=== PATIENT | female | born 1955 | race African-American/Black ===

== ENCOUNTER 2025-03-30 19:32 | Emergency (ER) | payer MEDICARE, OTHER ==
[2025-03-30 20:03] VITALS: TEMP 98.1
--- NOTE | 2025-03-30 20:15 | ED ---
General Adult HPI - General Chief complaint: Urogenital Stated complaint: Flank pain Time Seen by Provider: 03/30/25 19:50 Source: patient, RN notes reviewed Mode of arrival: EMS Limitations: no limitations - History of Present Illness Initial comments: This is a 69-year-old female with history including CAD, hypertension, hyperlipidemia presenting from [facility] via EMS for right flank pain (8/10) x 1 month. Patient endorses associated dysuria and history of nephrolithiasis. Denies fever, chills, hematuria, anuria. Patient also mentions swelling and pain in her right hand x 2 months that travels to her right arm without any known fall, trauma or other known cause for swelling/pain. Denies pleuritic chest pain, constant chest pain, dyspnea, N/V/D. Onset/Timin -: month(s) Location: abdomen, right, upper extremity Severity scale (1-10): 8 Quality: aching Consistency: constant Associated Symptoms: other (Dysuria) Treatments Prior to Arrival: other (Tylenol) - Related Data Previous Rx's Medication Instructions Recorded Cephalexin [Keflex] 500 mg PO Q12HR 1 Days #20 cap 03/30/25 Ketorolac [Toradol] 10 mg PO Q6HR PRN #15 tab 04/02/25 Lidocaine 5% Patch [Lidoderm 5% 1 patch TOPICAL DAILY PRN #30 patch 04/02/25 Patch] Allergies Allergy/AdvReac Type Severity Reaction Status Date / Time No Known Allergies Allergy Verified 04/02/25 15:12 Review of Systems ROS Statement: Those systems with pertinent positive or pertinent negative responses have been documented in the HPI. ROS Other: All systems not noted in ROS Statement are negative. Past Medical History Past Medical History: Coronary Artery Disease (CAD), Hyperlipidemia, Hypertension History of Any Multi-Drug Resistant Organisms: None Reported Additional Past Surgical History / Comment(s): "Broken neck" Smoking Status: Current every day smoker Past Alcohol Use History: None Reported Past Drug Use History: Heroin, IV Drug Use General Exam General appearance: alert, in no apparent distress Head exam: Present: atraumatic, normocephalic, normal inspection Eye exam: Present: normal appearance, PERRL, EOMI. Absent: scleral icterus, conjunctival injection, periorbital swelling ENT exam: Present: normal exam, mucous membranes moist Neck exam: Present: normal inspection. Absent: tenderness, meningismus, lymphadenopathy Respiratory exam: Present: normal lung sounds bilaterally. Absent: respiratory distress, wheezes, rales, rhonchi, stridor Cardiovascular Exam: Present: regular rate, normal rhythm, normal heart sounds. Absent: systolic murmur, diastolic murmur, rubs, gallop, clicks GI/Abdominal exam: Present: soft, normal bowel sounds. Absent: distended, tenderness, guarding, rebound, rigid Extremities exam: Present: full ROM, tenderness (Positive moderate right hand edema and TTP without obvious open wound, erythema, warmth, ecchymosis, crepitus, deformity), normal capillary refill, other (RUE distal neurovascular motor function intact. Radial pulse +2, capillary refill less than 2 seconds). Absent: pedal edema, joint swelling, calf tenderness Back exam: Present: normal inspection Neurological exam: Present: alert, oriented X3, CN II-XII intact Psychiatric exam: Present: normal affect, normal mood Skin exam: Present: warm, dry, intact, normal color. Absent: rash Course Vital Signs 03/30/25 03/31/25 20:00 00:55 Temperature 98.1 F 98.1 F Pulse Rate 57 L 55 L Respiratory 18 16 Rate Blood Pressure 158/93 137/73 O2 Sat by Pulse 98 100 Oximetry Medical Decision Making - Medical Decision Making Was pt. sent in by a medical professional or institution (Dr. PA, LOW PRESSURE FIRER, urgent care, hospital, or detention...) When possible be specific @ -No Did you speak to anyone other than the patient for history (EMS, parent, family, police, friend...)? What history was obtained from this source @ -No Did you review nursing and triage notes (agree or disagree)? Why? @ -I reviewed and agree with nursing and triage notes Were old charts reviewed (outside hosp., previous admission, EMS record, old EKG, old radiological studies, urgent care reports/EKG's, detention records)? Report findings @ -No old charts were reviewed Differential Diagnosis (chest pain, altered mental status, abdominal pain women, abdominal pain men, vaginal bleeding, weakness, fever, dyspnea, syncope, headache, dizziness, GI bleed, back pain, seizure, CVA, palpatations, mental h ealth, musculoskeletal)? @ -Differential Abdominal Pain Women: Appendicitis, Cholecystitis, diverticulosis, ischemic bowel, pancreatitis, hepatitis, UTI, gastroenteritis, AAA, incarcerated hernia, bowel obstruction, constipation, inflammatory bowel, hepatitis, peptic ulcer disease, splenic infarction, perforated viscus, vulvitis, ovarian torsion, PID, kidney stone, placenta abruption, this is not meant to be an all-inclusive list Differential Musculoskeletal Muscular strain, contusion, ligament sprain, fracture, arthritis, septic arthritis, bursitis, cellulitis, muscle spasm, nerve compression, DVT, arterial occlusion, herpes zoster, electrolyte abnormality, tumor.... This is not meant to be in all inclusive list EKG interpreted by me (3pts min.). @ -Not done X-rays interpreted by me (1pt min.). @ -Right hand x-ray shows no acute fracture or dislocation. CT interpreted by me (1pt min.). @ -AP CT shows no acute abdomen/pelvic abnormalities with no evidence of nephrolithiasis or obstructive uropathy. U/S interpreted by me (1pt. min.). @ - RUE Doppler ultrasound shows no evidence of DVT. What testing was considered but not performed or refused? (CT, X-rays, U/S, labs)? Why? @ -Patient declined repeat blood draw after initial blood was found to be hemolyzed What meds were considered but not given or refused? Why? @ -None Did you discuss the management of the patient with other professionals (professionals i.e. , PA, LOW PRESSURE FIRER, lab, RT, psych nurse, criminal justice social worker, concrete block layer, teacher, campus security officer, field nurse case manager)? Give summary @ -No Was smoking cessation discussed for >3mins.? @ -No Was critical care preformed (if so, how long)? @ -No Were there social determinants of health that impacted care today? How? (Homelessness, low income, unemployed, alcoholism, drug addiction, transportation, low edu. Level, literacy, decrease access to med. care, penitentiary, rehab)? @ -No Was there de-escalation of care discussed even if they declined (Discuss DNR or withdrawal of care, Hospice)? DNR status @ -No What co-morbidities impacted this encounter? (DM, HTN, Smoking, COPD, CAD, Cancer, CVA, ARF, Chemo, Hep., AIDS, mental health diagnosis, sleep apnea, morbid obesity)? @ -None Was patient admitted / discharged? Hospital course, mention meds given and route, prescriptions, significant lab abnormalities, going to OR and other pertinent info. @ -Patient initially provided IV normal saline, morphine, Toradol. UA positive for UTI. Blood work drawn was found to be hemolyzed and repeat blood draw needed to be performed. Patient declined repeat blood draw. Right hand x-ray shows no acute fracture or dislocation. RUE Doppler ultrasound shows no evidence of DVT. AP CT shows no acute abdomen/pelvic abnormalities with no evidence of nephrolithiasis or obstructive uropathy. Patient provided IV Rocephin and p.o. Bactrim DS, Keflex as well as p.o. clonidine. Keflex regimen sent to patient's pharmacy. Advised increased water and cranberry juice intake as well as Tylenol every 4-6 hours as needed for pain. Discussed patient with Dr. Vargas. Undiagnosed new problem with uncertain prognosis? @ -No Drug Therapy requiring intensive monitoring for toxicity (Heparin, Nitro, Insulin, Cardizem)? @ -No Were any procedures done? @ -No Diagnosis/symptom? @ -UTI Acute, or Chronic, or Acute on Chronic? @ -Acute Uncomplicated (without systemic symptoms) or Complicated (systemic symptoms)? @ -Complicated Side effects of treatment? @ -No Exacerbation, Progression, or Severe Exacerbation? @ -No Poses a threat to life or bodily function? How? (Chest pain, [place], [place], pneumonia, PE, COPD, DKA, ARF, appy, cholecystitis, CVA, Diverticulitis, Homicidal, Suicidal, threat to staff... and all critical care pts) @ -No - Lab Data Lab Results 03/30/25 Range/Units 20:11 Urine Color Light Yellow Urine Appearance Clear (Clear) Urine pH 5.5 (5.0-8.0) Ur Specific [place] 1.019 (1.001-1.035) Urine Protein Negative (Negative) Urine Glucose (UA) Negative (Negative) Urine Ketones Negative (Negative) Urine Blood Negative (Negative) Urine Nitrite Negative (Negative) Urine Bilirubin Negative (Negative) Urine Urobilinogen <2.0 (<2.0) mg/dL Ur Leukocyte Esterase Moderate H (Negative) Urine RBC 2 (0-5) /hpf Urine WBC 4 (0-5) /hpf Ur Squamous Epith Cells 4 (0-4) /hpf Urine Bacteria Moderate H (None) /hpf Urine Mucus Rare H (None) /hpf Disposition Clinical Impression: Urinary tract infection, Swelling of right hand Disposition: HOME SELF-CARE Condition: Good Instructions (If sedation given, give patient instructions): Urinary Tract Infection in Women (ED) Additional Instructions: Increase water cranberry juice intake. Follow-up with orthopedics regarding ongoing right hand/arm swelling and pain. Alternate Tylenol/Motrin every 4 hours for pain. Prescriptions: Cephalexin [Keflex] 500 mg PO Q12HR 1 Days #20 cap Is patient prescribed a controlled substance at d/c from ED?: No Referrals: None,Stated [Primary Care Provider] - 1-2 days Juanpablo Solorzano [Medical Doctor] - 1-2 days [facility] [Provider Group] - 1-2 days Time of Disposition: 21:49
--- NOTE | 2025-03-30 20:32 | XR ---
EXAMINATION TYPE: XR hand complete RT DATE OF EXAM: 03/30/2025 8:28 PM COMPARISON: None. CLINICAL INDICATION: Female, 69 years old with history of s/o RUE and hand pain/edema; PHH, pain TECHNIQUE: XR hand complete RT Frontal, lateral and oblique views were obtained. FINDINGS: Carpal alignment appears maintained. No acute osseous pathology is identified. No unexpecte d radiopaque foreign body. Interphalangeal degenerative osteophytic changes, most pronounced at the f irst digit DIP joint. No focal osseous erosion or aggressive periosteal reaction. IMPRESSION: No acute osseous abnormality. [facility], , 03/30/2025 8:30 PM
--- NOTE | 2025-03-30 21:14 | CT ---
EXAMINATION TYPE: CT abdomen pelvis wo con DATE OF EXAM: 03/30/2025 8:35 PM COMPARISON: None available. CLINICAL INDICATION: Female, 69 years old with history of Right flank pain, history of nephrolithiasi s; right flank pain, pain upon urination x2 weeks. Pt states hx of kidney stones. TECHNIQUE: Axial CT abdomen pelvis wo con;Sagittal and coronal reformats were created on a separate workstation. Oral contrast used: without Oral Contrast CT DLP: 517.5 mGycm, Automated exposure control for dose reduction was used. FINDINGS: LOWER CHEST: Unremarkable ABDOMEN LIVER: Unremarkable GALLBLADDER AND BILE DUCTS: Unremarkable. PANCREAS: Unremarkable. SPLEEN: Unremarkable. ADRENAL GLANDS: Unremarkable. KIDNEYS AND URETERS: No evidence of hydronephrosis or renal calculus. The ureters are unremarkable. PELVIS BLADDER: No evidence for wall thickening or mass given limitations of exam. REPRODUCTIVE: Unremarkable. ABDOMEN & PELVIS STOMACH AND BOWEL: Stomach and duodenum are unremarkable. Moderate diffuse colonic stool burden. No e vidence of bowel obstruction. PERITONEUM/RETROPERITONEUM: No evidence of pneumoperitoneum or free fluid. VASCULATURE: No evidence of aortic aneurysm. MUSCULOSKELETAL: No acute osseous abnormalities LYMPH NODES: No gross evidence for lymphadenopathy. SOFT TISSUE/ABDOMINAL WALL: Unremarkable IMPRESSION: No acute abnormality in the abdomen/pelvis. Specifically, no evidence of nephrolithiasis or hydroneph rosis/acute obstructive uropathy. [facility], , 03/30/2025 9:11 PM
--- NOTE | 2025-03-30 21:15 | US ---
EXAMINATION TYPE: US venous doppler duplex UE RT DATE OF EXAM: 03/30/2025 COMPARISON: NONE CLINICAL INDICATION: Female, 69 years old with history of s/o RUE and hand pain/edema; No hx of DVT. Pain and edema x a couple months. TECHNIQUE: Grayscale, color Doppler and spectral Doppler imaging of the upper extremity. SIDE PERFORMED: Right arm VESSELS IMAGED: IJV Subclavian Vein Axilla Vein Brachial Vein(s) Radial Paired Veins Ulnar Paired Veins Cephalic Vein* Basilic Vein* (*superficial vessels) FINDINGS: Right Arm: No evidence of DVT. *Unable to follow cephalic or basilic vein fully down the arm. Both veins appear wnl in the upper arm . IMPRESSION: No evidence of DVT in the visualized vasculature of the right upper extremity. [facility], , 03/30/2025 9:12 PM
[2025-03-30 21:37] LABS: Appearance,Urine Clear (Clear); Bacteria,Urine Moderate /hpf; Bilirubin,Urine Negative (Negative); Blood,Urine Negative (Negative); Color,Urine Light Yellow; Glucose,Urine (UA) Negative (Negative); Ketones,Urine Negative (Negative); Leukocyte Esterase,Urine Moderate (Negative); Mucus,Urine Rare /hpf; Nitrite,Urine Negative (Negative); PH, Urine 5.5 (5.0-8.0); Protein,Urine Negative (Negative); RBC,Urine 2 /hpf (0-5); Specific Gravity,Urine 1.019 (1.001-1.035); Squamous Epithelial Cell,Urine 4 /hpf (0-4); Urobilinogen,Urine <2.0 mg/dL (<2.0); WBC,Urine 4 /hpf (0-5)
[2025-03-30] MEDS: CEPHALEXIN 500 MG CAP PO STA (22:29)
[2025-03-30] MEDS: MORPHINE SULFATE 4 MG/ML SYRINGE IVP STA (22:29)
[2025-03-30] MEDS: KETOROLAC 15 MG/ML 1 ML VIAL IVP STA (22:29)
[2025-03-30] MEDS: cefTRIAXone IN SWFI 1,000 MG/10 ML SYRINGE IVP STA (22:29)
[2025-03-30] MEDS: SODIUM CHLORIDE 0.9% 1,000 ML IV STA (22:37)
[2025-03-30] MEDS: SULFAMETHOX-TMP 800-160MG 1 EACH TAB PO STA (22:38)
[2025-03-30] MEDS: cloNIDine HCL 0.2 MG TAB PO STA (23:09)
[2025-03-31 01:08] VITALS: BP 137/73; PULSE 55; RESP 16
== END 2025-03-31 01:08 | disposition home or self-care (01) ==
LOC: EC 19:32
DX: N39.0 Urinary tract infection, site not specified (principal); M79.89 Other specified soft tissue disorders; F17.200 Nicotine dependence, unspecified, uncomplicated
CPT/HCPCS: 81001; 73130; 93971; 74176; 99284; 96374; 96375; 96361; J2270; J0696; J1885

== ENCOUNTER 2025-04-02 14:59 | Emergency (ER) | payer MEDICARE, OTHER ==
--- NOTE | 2025-04-02 15:24 | ED ---
Fall HPI - General Chief Complaint: Fall Stated Complaint: Fall/Left Side Injury Time Seen by Provider: 04/02/25 15:15 Source: patient, RN notes reviewed Mode of arrival: ambulatory Limitations: no limitations - History of Present Illness Initial Comments: This is a 69-year-old female who presents to the emergency department for a fall. Patient is currently at [facility] and tripped on a rug, causing her to fall and injure herself. Currently complains of pain to the bilateral knees, left shoulder, left rib cage. Denies hitting her head or any LOC. She is still able to ambulate without difficulty. Denies any difficulty breathing with regards to the rib pain. MD Complaint: fall - Related Data Previous Rx's Medication Instructions Recorded Cephalexin [Keflex] 500 mg PO Q12HR 1 Days #20 cap 03/30/25 Ketorolac [Toradol] 10 mg PO Q6HR PRN #15 tab 04/02/25 Lidocaine 5% Patch [Lidoderm 5% 1 patch TOPICAL DAILY PRN #30 patch 04/02/25 Patch] Allergies Allergy/AdvReac Type Severity Reaction Status Date / Time No Known Allergies Allergy Verified 04/02/25 15:12 Review of Systems ROS Statement: Those systems with pertinent positive or pertinent negative responses have been documented in the HPI. ROS Other: All systems not noted in ROS Statement are negative. Past Medical History Past Medical History: Coronary Artery Disease (CAD), Hyperlipidemia, Hypertension History of Any Multi-Drug Resistant Organisms: None Reported Additional Past Surgical History / Comment(s): "Broken neck" Smoking Status: Current every day smoker Past Alcohol Use History: None Reported Past Drug Use History: Heroin, IV Drug Use General Exam Limitations: no limitations General appearance: alert, in no apparent distress Head exam: Present: atraumatic, normocephalic, normal inspection Respiratory exam: Present: normal lung sounds bilaterally. Absent: respiratory distress, wheezes, rales, rhonchi, stridor Cardiovascular Exam: Present: regular rate, normal rhythm Extremities exam: Present: other (Mild tenderness to the bilateral patella. Ful l range of motion. 2+ DP and PT pulses. Mild tenderness over the left shoulder. Range of motion slightly limited by pain. 2+ radial pulses) Neurological exam: Present: alert, oriented X3, CN II-XII intact Psychiatric exam: Present: normal affect, normal mood Skin exam: Present: warm, dry, intact, normal color. Absent: rash Course Vital Signs 04/02/25 04/02/25 15:10 16:59 Temperature 97.9 F 98.0 F Pulse Rate 52 L 68 Respiratory 16 18 Rate Blood Pressure 148/80 140/79 O2 Sat by Pulse 94 L 95 Oximetry Medical Decision Making - Medical Decision Making This is a 69 year old female who presents to the emergency department for a fall. Was pt. sent in by a medical professional or institution? @ -[facility] Did you speak to anyone other than the patient for history? @ -No Did you review nursing and triage notes? @ -Yes, and I agree, it is accurate with regards to the patient's symptoms. Were old charts reviewed? @ -No Differential Diagnosis? @ -Differential Musculoskeletal Muscular strain, contusion, ligament sprain, fracture, arthritis, septic arthrit is, bursitis, cellulitis, muscle spasm, nerve compression, DVT, arterial occlusion, herpes zoster, electrolyte abnormality, tumor.... This is not meant to be in all inclusive list EKG interpreted by me (3pts min.)? @ -Not obtained X-rays interpreted by me (1pt min.)? @ -Chest x-ray obtained. My interpretation identifies a left rib deformity. X-ray of the bilateral knees and left shoulder obtained. My interpretation identifies no acute fractures on any of those images. CT interpreted by me (1pt min.)? @ -Not obtained U/S interpreted by me (1pt. min.)? @ -Not obtained What testing was considered but not performed? (CT, X-rays, U/S, labs)? Why? @ -None What meds were considered but not given? Why? @ -None Did you discuss the management of the patient with other professionals? @ -No Did you reconcile home meds? @ -No Was smoking cessation discussed for >3mins.? @ -I discussed smoking cessation for greater than 3 minutes. The risk of smoking were discussed with the patient including but not limited to risks of cancer, stroke, coronary artery disease and COPD. Also discussed with patient were multiple methods of quitting smoking. Lastly we discussed the financial cost of smoking. Was critical care preformed (if so, how long)? @ -No Were there social determinants of health that impacted care today? How? (Ho melessness, low income, unemployed, alcoholism, drug addiction, transportation, low edu. Level, literacy, decrease access to med. care, long-term, rehab)? @ -Rehab, where the event took place Was there de-escalation of care discussed even if they declined? (Discuss DNR or withdrawal of care, Hospice)? @ -No What co-morbidities impacted this encounter? (DM, HTN, Smoking, COPD, CAD, Cancer, CVA, Hep., AIDS, mental health diagnosis, sleep apnea, morbid obesity)? @ -Polysubstance abuse, smoking Was patient admitted / discharged? @ -Discharged. X-ray of the left rib cage/PA chest demonstrates a possible nondisplaced fracture of left rib #6. X-ray of the bilateral knees and left shoulder revealed no acute findings. Pain well-controlled with Toradol and Tylenol. Toradol and lidocaine patches prescribed for further management. Advised she take several deep breaths an hour despite any pain to reduce the r isk of developing a secondary pneumonia. Patient discharged back to [facility] in stable condition. Case discussed with ED attending Dr. Gomez. Return precautions reviewed in depth, the patient is instructed to return to the emergency department with any new, worsening, or concerning symptoms. Patient verbalized understanding. Undiagnosed new problem with uncertain prognosis? @ -None Drug Therapy requiring intensive monitoring for toxicity (Heparin, Nitro, Insulin, Cardizem)? @ -None Were any procedures done? @ -None Diagnosis/symptom? @ -Fall, left rib fracture Acute, or Chronic, or Acute on Chronic? @ -Acute Uncomplicated (without systemic symptoms) or Complicated (systemic symptoms)? @ -Uncomplicated Side effects of treatment? @ -None Exacerbation, Progression, or Severe Exacerbation] @ -Not applicable Poses a threat to life or bodily function? @ -No - Radiology Data Radiology results: report reviewed, image reviewed Disposition Clinical Impression: Fall, Left rib fracture, Nicotine dependence Disposition: HOME SELF-CARE Instructions (If sedation given, give patient instructions): Rib Fracture (ED) Additional Instructions: Return to the emergency department with any new, worsening, or concerning symptoms. Take the Toradol with Tylenol as needed for pain relief. If you choose to take the Toradol, do not take any other anti-inflammatories such as ibuprofen, take one or the other. You can also apply the lidocaine patches daily. Make sure you take several deep breaths an hour despite the pain to reduce the risk of developing a secondary pneumonia. Follow up with your [facility] care provider in 1-2 days. Prescriptions: Lidocaine 5% Patch [Lidoderm 5% Patch] 1 patch TOPICAL DAILY PRN #30 patch PRN Reason: Pain Ketorolac [Toradol] 10 mg PO Q6HR PRN #15 tab PRN Reason: Pain Is patient prescribed a controlled substance at d/c from ED?: No Referrals: Nonstaff,Physician [Primary Care Provider] - 1-2 days Time of Disposition: 16:48
[2025-04-02] MEDS: ACETAMINOPHEN TAB 500 MG TAB PO STA (15:43)
[2025-04-02] MEDS: KETOROLAC 15 MG/ML 1 ML VIAL IM STA (15:46)
--- NOTE | 2025-04-02 15:50 | XR ---
EXAMINATION TYPE: XR shoulder complete LT DATE OF EXAM: 04/02/2025 3:42 PM COMPARISON: None. CLINICAL INDICATION: Female, 69 years old with history of Fall, pain TECHNIQUE: XR shoulder complete LT views were obtained FINDINGS: There is no acute fracture/dislocation evident. The acromioclavicular and glenohumeral joint spaces appear severely narrowed. The visualized ribs are intact and unremarkable. IMPRESSION: There is no acute fracture or dislocation. [facility], , 04/02/2025 3:48 PM
--- NOTE | 2025-04-02 16:08 | XR ---
EXAMINATION TYPE: XR knee complete bilateral DATE OF EXAM: 04/02/2025 3:42 PM COMPARISON: None. CLINICAL INDICATION: Female, 69 years old with history of Fall, pain TECHNIQUE: XR knee complete bilateral views were obtained FINDINGS: There is no acute fracture/dislocation. The tri-compartment joint spaces appear within no rmal limits. The overlying soft tissue appears unremarkable. IMPRESSION: There is no acute fracture or dislocation.ICD 10 NO FRACTURE, INITIAL EVALUATION [facility], , 04/02/2025 4:06 PM
--- NOTE | 2025-04-02 16:10 | XR ---
EXAMINATION TYPE: XR ribs LT w pa chest xray DATE OF EXAM: 04/02/2025 3:43 PM COMPARISON: None. CLINICAL INDICATION: Female, 69 years old with history of Fall, TECHNIQUE: Single view of the chest left views of the ribs are submitted. FINDINGS: The lungs are clear. No Evidence for pneumothorax. No evidence for focal contusion. Mediastinal st ructures are midline. Evaluation of the ribs demonstrates mild deformity of left rib #6 which could reflect a virtually nondisplaced fracture. Correlate clinically with point tenderness. IMPRESSION: As above [facility], , 04/02/2025 4:08 PM
[2025-04-02 17:00] VITALS: BP 140/79; PULSE 68; RESP 18; TEMP 98
== END 2025-04-02 17:00 | disposition home or self-care (01) ==
LOC: EC 14:59
DX: S22.32XA Fracture of one rib, left side, initial encounter for closed fracture (principal); F19.10 Other psychoactive substance abuse, uncomplicated; F17.200 Nicotine dependence, unspecified, uncomplicated; W19.XXXA Unspecified fall, initial encounter
CPT/HCPCS: 71101; 73562; 73030; 99283; 96372; J1885